=== PATIENT | female | born 1935 | race Caucasian/White ===

== ENCOUNTER 2019-07-27 06:00 | Outpatient (RCR) | payer MEDICARE, SELFPAY | END 2019-08-01 23:59 | disposition home or self-care (01) | LOC: LAB 06:00 | PROVIDERS: Visit Provider Family Medicine | DX: R41.0 Disorientation, unspecified (principal); T84.54XA Infection and inflammatory reaction due to internal left knee prosthesis, initial encounter; Y83.8 Other surgical procedures as the cause of abnormal reaction of the patient, or of later complication, without mention of misadventure at the time of the procedure | CPT/HCPCS: 36415 ×2; 81003; 84439; 85025; 87086 ==